=== PATIENT | male | born 1995 | race Caucasian/White ===

== ENCOUNTER 2019-04-16 17:40 | Emergency (ER) | payer OTHER ==
--- NOTE | 2019-04-16 18:24 | EDPHY ---
H & P Stated Complaint: Injury to head while doing a backflip on skiis - confusion resolved - Personal History Current Tetanus Diphtheria and Acellular Pertussis (TDAP): Yes - Medical/Surgical History Hx Asthma: No Hx Chronic Respiratory Disease: No Hx Diabetes: No Hx Cardiac Disease: No Hx Renal Disease: No Hx Cirrhosis: No Hx Alcoholism: No Hx HIV/AIDS: No Hx Splenectomy or Spleen Trauma: No Other PMH: Denies. 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 He felt temporarily dazed. Positive brief loss of consciousness. He was able to continue [place] the [place] although in the immediate posttraumatic. He had difficulty recalling how which [place]. He currently states that he is feeling well and primary complaint is mild nonprogressive non thunderclap headache and mid thoracic spine pain. Midthoracic spine pain reproducible range of motion not with palpation. The patient denies: Nausea, vomiting, altered mentation according the father, peripheral paresthesia, weakness, numbness, will chest pain or trauma, dyspnea, abdominal pain or trauma, genital trauma. REVIEW OF SYSTEMS: 10 systems reviewed and negative with the exception of the elements mentioned in the history of present illness PAST MEDICAL/SURGICAL HISTORY: no anticoagulant use, no relevant medical/ surgical history SOCIAL HISTORY: denies alcohol use at time of incident PHYSICAL EXAM 1) GENERAL: Well-developed, well-nourished, alert and oriented. Appears to be in no acute distress. Answering questions appropriately. 2) HEAD: Normocephalic, atraumatic 3) HEENT: Pupils equal, round, reactive to light bilaterally. Negative Horners. Nasopharynx, oropharynx, clear. No deformity or angulation of nose. No septal hematoma. No rhinorrhea. No oral trauma. Ears bilaterally with normal tympanic membranes. No hemotympanum. No fluid or blood in the external auditory canal. No raccoon eyes. No Chan sign. Teeth are normally aligned with no gross malocclusion, TMJ bilaterally nontender, facial bones nontender including the zygomatic arch, maxilla mandible. 4) NECK: No cervical collar is on. Posterior cervical spine is nontender, no stepoff, no effusion. Full range of motion which does not elicit any midline cervical spine pain, no posterior midline tenderness, no step-off. 5) LUNGS: Clear to auscultation bilaterally, no wheezes, no rhonchi, no retractions. No obvious signs of trauma. No chest wall pain. No flaring, no grunting. Moving symmetrically. No crepitus. 6) HEART: Regular rate and rhythm, 7) ABDOMEN: No guarding, no rebound, no focal tenderness, no peritoneal signs, no signs of trauma, no ecchymosis 8) MUSCULOSKELETAL: Moving all extremities, no focal areas of tenderness, no obvious trauma. 9) BACK: Unable to complete differentiate true midline versus just lateral midline mid to lower T-spine pain. No palpable abnormality. No step-off. No midline vertebral tenderness, no fluctuance, no step-off, no obvious trauma, no visual or palpable abnormality. 10) SKIN: No laceration. No abrasion 11) NEURO: Awake, alert, and oriented to person, place and time. Answers questions appropriately. There were no obvious focal neurologic abnormalities. No cerebellar dysfunction. Cranial nerves 2 through to 12 intact. Normal steady gait. Upper and lower extremities bilaterally with strength 5 / 5, reflexes 2+. 12) CERVICAL SPINE NEURO EXAM: Bilateral reflexes of biceps triceps brachioradialis intact equal bilaterally Motor exam: deltoid, biceps, wrist extension, tricep, finger extension, finger flexion, finger abduction intact equal bilaterally 5/5 DIFFERENTIAL DIAGNOSIS: Not necessarily in any particular order, my differential diagnosis includes, but is not limited to, concussion, skull fracture, intraparenchymal contusion, subarachnoid, subdural and epidural hematoma. The patient understands that this diagnosis is provisional and can never be 100% accurate. (Raul Blackman) Constitutional: Initial Vital Signs Temperature (C) 36.4 C 04/16/19 17:44 Heart Rate 97 04/16/19 17:44 Respiratory Rate 16 04/16/19 17:44 Blood Pressure 137/83 H 04/16/19 17:44 O2 Sat (%) 99 04/16/19 17:44 O2 Delivery Mode Room Air Allergies/Adverse Reactions: No Known Allergies Allergy (Unverified 07/28/13 12:14) Home Medications: Medication Instructions Recorded Vitamin 07/28/13 Medical Decision Making - Diagnostics Imaging Results: Imaging Impressions Cervical Spine CT 04/16/19 18:14 Impression: No acute intracranial process or cervical/thoracic spine fracture/ subluxation. Findings and recommendations discussed with Raul Blackman at 1846 hour, . Head CT 04/16/19 18:14 Impression: No acute intracranial process or cervical/thoracic spine fracture/ subluxation. Findings and recommendations discussed with Raul Blackman at 1846 hour, . Thoracic Spine CT 04/16/19 18:14 Impression: No acute intracranial process or cervical/thoracic spine fracture/ subluxation. Findings and recommendations discussed with Raul Blackman at 1846 hour, . Images reviewed myself (Raul Blackman) ED Course/Re-evaluation: 6:24 p.m.: Head CT ordered in this patient for trauma for the following indication: Loss of consciousness and headache, fall greater than 3 feet. Will also obtain imaging of the cervical and thoracic spine Care of patient under supervision of secondary supervising physician Dr Florez . 6:49 p.m.: CT imaging interpreted by staff radiologist, with images reviewed myself, is negative for posttraumatic sequelae. Patient re-evaluated. Answering questions appropriately. He remains with a nonfocal exam with no neurologic complaints. Think the patient can be discharged safely at this time. Given 2nd impact syndrome precautions, cervical precautions, post concussive precautions. He and father feel comfortable being discharged. ( Raul Blackman) Other Provider: The patient was evaluated and managed by the Physician Fancy Needleworker. My co- signature indicates that I have reviewed this chart and I agree with the findings and plan of care as documented. I am the secondary supervising physician. (Ingrid Florez) Departure - Departure Disposition: Home, Routine, Self-Care Clinical Impression: Skiing accident, Headache, Head injury, Back pain Condition: Good Instructions: Concussion (ED), Head Injury (ED), Back Pain (ED) Additional Instructions: ALTHOUGH THERE IS NO EVIDENCE OF SERIOUS HEAD INJURY AT THIS TIME, DELAYED SIGNS CAN APPEAR 24 TO 48 HOURS AFTER INJURY. PLEASE RETURN TO THE EMERGENCY DEPARTMENT (ED) IMMEDIATELY IF YOU HAVE INCREASED HEADACHE, PERSISTENT HEADACHE , VOMITING, WEAKNESS, CONFUSION OR VISUAL PROBLEMS. WE RECOMMEND THAT YOU DO NOT RESUME CONTACT SPORTS OR ACTIVITIES THAT TAKE COORDINATION OR BALANCE SUCH SKIING OR RIDING A BICYCLE UNTIL CLEARED TO DO SO BY YOUR DOCTOR OR BY A NEUROLOGIST. Referrals: Alex Owens MD [Primary Care Provider] - 1-2 days without fail Ofe Gonzales MD [Medical Doctor] - 5-7 days, call for appt.
[2019-04-16 19:04] VITALS: BP 124/78
== END 2019-04-16 19:06 | disposition home or self-care (01) ==
DX: S09.90XA Unspecified injury of head, initial encounter (principal); M54.9 Dorsalgia, unspecified; V00.321A Fall from snow-skis, initial encounter; Y92.828 Other wilderness area as the place of occurrence of the external cause; Y93.23 Activity, snow (alpine) (downhill) skiing, snowboarding, sledding, tobogganing and snow tubing

== ENCOUNTER → 2019-04-29 | Outpatient (CLI) | payer OTHER | LOC: BMCIMAGING 09:32 ==